=== PATIENT | male | born 1985 | race African-American/Black ===

== ENCOUNTER 2022-07-20 05:15 | Emergency (ER) | payer SELFPAY ==
[~2022-07-20] VITALS: Ht 175.3 cm; Wt 74.0 kg
[2022-07-20 05:17] VITALS: BP 144/88
== END 2022-07-20 13:28 | disposition left against medical advice (07) ==
LOC: ER 05:15
DX: Z53.21 Procedure and treatment not carried out due to patient leaving prior to being seen by health care provider (principal)